=== PATIENT | female | born 1985 | race Caucasian/White ===

== ENCOUNTER 2020-12-31 22:39 | Emergency (ER) | payer MEDICAID ==
[~2020-12-31] VITALS: Ht 162.6 cm; Wt 67.3 kg
[~2020-12-31 22:39] MED LIST: PRENATAL VIT; TYLENOL
[2020-12-31 22:42] VITALS: BP 135/93
== END 2021-01-01 03:40 | disposition left against medical advice (07) ==
LOC: ER 22:40
DX: K13.79 Other lesions of oral mucosa (principal); K08.89 Other specified disorders of teeth and supporting structures; Z53.21 Procedure and treatment not carried out due to patient leaving prior to being seen by health care provider